=== PATIENT | male | born 1990 | race Caucasian/White ===

== ENCOUNTER 2016-09-23 21:08 | Emergency (ER) | payer OTHER | END 2016-09-23 21:52 | disposition home or self-care (01) | LOC: ED 21:08 | DX: K62.5 Hemorrhage of anus and rectum (principal); R19.7 Diarrhea, unspecified ==

== ENCOUNTER 2017-06-17 08:44 | Emergency (ER) | payer OTHER ==
[~2017-06-17] VITALS: Ht 172.7 cm; Wt 100.0 kg
[2017-06-17] MEDS ORDERED: TRAMADOL 50 MG TAB PO (08:51)
[2017-06-17] MEDS ORDERED: DESYREL 50MG50 MG PO (08:51)
[2017-06-17] MEDS ORDERED: EFFEXOR XR150 M1 PO (08:51)
[2017-06-17 09:29] LABS: EOS # 0.2 (0.04-0.40); EOS % 2.1 % (0.0-4.0); HEMATOCRIT 43.7 % (42.0-52.0); HEMOGLOBIN 14.6 g/dL (13.5-18.0); MEAN CELL VOLUME 87 fl (78-100); MEAN CORPUSCULAR HEMOGLOBIN 29 pg (27-31); MEAN CORPUSCULAR HGB CONC 33 g/dL (33-37); MEAN PLATELET VOLUME 9.4 fl (7.4-10.4); MONO # 0.8 (0.20-0.80); NEU # 4.3 (1.40-6.50); PLATELET COUNT 316 K/mm3 (130-400); RED BLOOD COUNT 5.04 M/mm3 (4.20-5.60); WHITE BLOOD COUNT 7.3 K/mm3 (4.8-10.8)
[2017-06-17 09:42] LABS: ALBUMIN 4.1 g/dL (3.5-5.0); BUN/CREATININE RATIO 18.5 (6.0-26.0); CALCIUM 9.5 mg/dL (8.4-10.2); TOTAL BILIRUBIN 0.5 mg/dL (0.2-1.3); TOTAL PROTEIN 7.6 g/dL (6.3-8.2)
[2017-06-17] MEDS ORDERED: MIRALAX17 GM PO (10:20)
[2017-06-17 10:28] VITALS: BP 102/77
== END 2017-06-17 10:25 | disposition home or self-care (01) ==
LOC: ED 08:44
PROVIDERS: Physician Assistant
DX: K59.00 Constipation, unspecified (principal); F41.9 Anxiety disorder, unspecified

== ENCOUNTER 2020-09-16 18:49 | Emergency (ER) | payer OTHER ==
[~2020-09-16] VITALS: Ht 175.3 cm; Wt 97.5 kg
[~2020-09-16 18:49] MED LIST: DESYREL 50MG50 MG PO; EFFEXOR XR150 M1 PO; MIRALAX17 GM PO; TRAMADOL 50 MG TAB PO
[2020-09-16] MEDS ORDERED: XANAX0.5 M1 PO (19:42)
[2020-09-16 21:04] VITALS: BP 136/78
== END 2020-09-16 20:56 | disposition home or self-care (01) ==
LOC: ED 18:49
DX: S60.221A Contusion of right hand, initial encounter (principal); F41.9 Anxiety disorder, unspecified; F32.9 Major depressive disorder, single episode, unspecified; W01.198A Fall on same level from slipping, tripping and stumbling with subsequent striking against other object, initial encounter; Y92.009 Unspecified place in unspecified non-institutional (private) residence as the place of occurrence of the external cause

== ENCOUNTER 2021-12-02 11:20 | Emergency (ER) | payer OTHER ==
[~2021-12-02 11:20] MED LIST changes: +XANAX0.5 M1 PO
[2021-12-02 11:31] VITALS: BP 115/79
== END 2021-12-02 12:52 | disposition home or self-care (01) ==
LOC: ED 11:20
DX: L50.9 Urticaria, unspecified (principal)